=== PATIENT | female | born 1975 | race Asian ===

== ENCOUNTER → 2018-04-16 | Outpatient (CLI) | payer OTHER | LOC: FIMAGING 07:24 | PROVIDERS: ATTEND Orthopaedic Surgery | DX: M23.92 Unspecified internal derangement of left knee (principal); M76.32 Iliotibial band syndrome, left leg; M70.52 Other bursitis of knee, left knee; M66.0 Rupture of popliteal cyst ==

== ENCOUNTER → 2018-07-14 | Outpatient (CLI) | payer OTHER | LOC: FIMAGING 07-07 18:35 | PROVIDERS: ATTEND Physical Medicine & Rehabilitation | DX: M75.82 Other shoulder lesions, left shoulder (principal); M75.52 Bursitis of left shoulder; M85.812 Other specified disorders of bone density and structure, left shoulder; M19.012 Primary osteoarthritis, left shoulder ==

== ENCOUNTER → 2018-08-27 | Outpatient (CLI) | payer OTHER | LOC: FIMAGING 17:50 | PROVIDERS: ATTEND Physical Medicine & Rehabilitation | DX: M84.822 Other disorders of continuity of bone, left humerus (principal) ==